=== PATIENT | male | born 1955 | race Caucasian/White ===

== ENCOUNTER 2023-04-24 04:46 | Day surgery (SDC) | payer OTHER ==
[2023-04-21 11:52] VITALS: BMI 37.5
[2023-04-24 09:25] VITALS: RESP 18
[2023-04-24] MEDS ORDERED: ONDANSETRON 4 MG/2 ML VIAL ONE (11:12)
[2023-04-24] MEDS ORDERED: MIDAZOLAM HCL 2 MG/2 ML SINGLE DOSE VIAL ONE (11:12)
[2023-04-24] MEDS ORDERED: FENTANYL CITRATE/PF 50 MCG/ML VIAL ONE (11:12)
[2023-04-24 14:06] VITALS: PULSE 59
[2023-04-24 14:10] VITALS: BP 126/76; TEMP 98.1
== END 2023-04-24 13:05 | disposition home or self-care (01) ==
LOC: JASU-SURG 04:46
PROVIDERS: ATTEND Urology
PROC: 0TF3XZZ Fragmentation in Right Kidney Pelvis, External Approach (ICD-10-PCS; principal; 2023-04-24 11:30)
DX: N20.0 Calculus of kidney (principal)

== ENCOUNTER 2024-05-30 11:51 | Inpatient (IN) | payer OTHER ==
[2024-05-30 13:22] LABS: BASO % 0.5 % (0-2.0); EOS % 0.7 % (0-4.5); HEMATOCRIT 50.4 % (35.4-49); HEMOGLOBIN 17.2 GM/dL (11.7-16.9); LYMPH % 9.7 % (8-40); MCH 33.2 pg (25.7-33.7); MCHC 34.2 g/dl (32.0-35.9); MEAN CELL VOLUME 97.1 fl (80-96); MEAN PLT VOLUME 7.8 fl (7.5-11.1); MONO % 6.3 % (3.8-10.2); NEUT % 82.8 % (42.8-82.8); PLATELET COUNT 254 10^3/uL (134-434); RBC 5.19 M/mm3 (4.00-5.60); RDW 14.1 % (11.9-15.9); WHITE BLOOD COUNT 7.6 K/mm3 (4.0-10.0)
[2024-05-30 13:56] LABS: POTASSIUM 4.2 mmol/L (3.5-5.1)
[2024-05-30 13:58] LABS: CALCIUM 9.5 mg/dL (8.5-10.1)
[2024-05-30 13:59] LABS: ALBUMIN 3.9 g/dl (3.4-5.0); BLOOD UREA NITROGEN 12.3 mg/dL (7-18)
[2024-05-30 14:02] LABS: CREATININE 0.9 mg/dL (0.55-1.3)
[2024-05-30 14:03] LABS: BILIRUBIN,TOTAL 0.9 mg/dL (0.2-1); TOT PROT 7.7 g/dl (6.4-8.2)
[2024-05-30 14:04] LABS: INR 0.85 (0.83-1.09); PROTHROMBIN TIME (PATIENT) 9.8 SEC (9.7-13.0)
[2024-05-30 14:06] LABS: ACTIVATED PTT 27.2 SECONDS (25.2-36.5)
[2024-05-30] MEDS ORDERED: HYDROCHLOROTHIAZIDE 25 MG TABLET (FP) ONE (16:03)
[2024-05-30] MEDS ORDERED: METOPROLOL TARTRATE 5 MG/5 ML VIAL ONE (16:03)
[2024-05-30] MEDS: HYDROCHLOROTHIAZIDE 12.5 MG CAPSULE (FP) PO ONE (16:12)
[2024-05-30] MEDS: METOPROLOL TARTRATE 5 MG/5 ML VIAL IVPUSH ONE (16:12)
[2024-05-30] MEDS ORDERED: METOPROLOL TARTRATE 5 MG/5 ML VIAL IVPUSH PRN (16:42)
[2024-05-30] MEDS: ENOXAPARIN NA (PORCINE) 100 MG/1 ML DISP.SYRIN SQ SCH (17:00)
[2024-05-30] MEDS: D5-1/2NS+20 MEQ KCL - 20 MEQ/1,000 ML INFUS.BAG IV SCH (17:14)
[2024-05-30] MEDS: NEBIVOLOL 5 MG TABLET (FP) PO ONE (17:35)
[2024-05-30] MEDS: METOPROLOL TARTRATE 25 MG TABLET (FP) PO SCH (22:19)
[2024-05-31 00:59] VITALS: BMI 38.0
[2024-05-31] MEDS: LEVOTHYROXINE NA 150 MCG TABLET PO SCH (06:29)
[2024-05-31 07:59] LABS: BASO % 0.9 % (0-2.0); EOS % 2.3 % (0-4.5); HEMATOCRIT 48.4 % (35.4-49); HEMOGLOBIN 16.8 GM/dL (11.7-16.9); MCH 33.6 pg (25.7-33.7); MCHC 34.6 g/dl (32.0-35.9); MEAN PLT VOLUME 8.5 fl (7.5-11.1); NEUT % 63.8 % (42.8-82.8); PLATELET COUNT 241 10^3/uL (134-434); RBC 4.99 M/mm3 (4.00-5.60); RDW 13.8 % (11.9-15.9); WHITE BLOOD COUNT 7.2 K/mm3 (4.0-10.0)
[2024-05-31 08:20] LABS: POTASSIUM 3.8 mmol/L (3.5-5.1)
[2024-05-31 08:39] LABS: ALBUMIN 3.4 g/dl (3.4-5.0); BLOOD UREA NITROGEN 9.2 mg/dL (7-18); MAGNESIUM 2.2 mg/dL (1.8-2.4)
[2024-05-31 08:42] LABS: CREATININE 0.9 mg/dL (0.55-1.3)
[2024-05-31 08:43] LABS: BILIRUBIN,TOTAL 0.9 mg/dL (0.2-1); TOT PROT 6.6 g/dl (6.4-8.2)
[2024-05-31] MEDS ORDERED: NEBIVOLOL 5 MG TABLET (FP) PO SCH (10:00)
[2024-05-31] MEDS: APIXABAN 5 MG TABLET PO SCH (21:52)
[2024-06-03] MEDS ORDERED: REGADENOSON 0.4 MG/5 ML PRE-FILLED SYRINGE IVPUSH ONE (09:56)
[2024-06-03] MEDS: REGADENOSON 0.4 MG/5 ML PRE-FILLED SYRINGE IVPUSH ONE (10:30)
[2024-06-03 15:25] VITALS: BP 129/77; PULSE 65; RESP 18; TEMP 97.9
[2024-06-04] MEDS ORDERED: metoPROLOL SUCCINATE 25 MG TAB.SR.24H (FP) PO SCH (10:00)
[2024-06-04] MEDS ORDERED: METOPROLOL SUCCINATE 50 MG, METOPROLOL SUCCINATE 25 MG PO SCH (10:00)
== END 2024-06-03 18:37 | disposition home or self-care (01) | DRG 310 ==
LOC: JER 11:51 → JERBED 15:38 → OBSVTOIN 16:35 → J4W 19:02
PROVIDERS: ADMIT Internal Medicine; ATTEND Internal Medicine
DX: I48.0 Paroxysmal atrial fibrillation (principal); I10 Essential (primary) hypertension; R55 Syncope and collapse; E66.9 Obesity, unspecified; Z68.38 Body mass index [BMI] 38.0-38.9, adult
CPT/HCPCS: 36415; 70450-TC; 71045-TC-FY; 71275-TC; 78452-TC; 80053; 80061; 83036; 83735; 84436; 84443; 84484; 85025; 85610; 85730; 93005; 93010; 93017; 93306-TC; 99285-25; A9502; G0378; J2785; Q9967